=== PATIENT | female | born 1965 | race Caucasian/White ===

== ENCOUNTER 2019-02-23 16:29 | Inpatient (IN) | payer BC ==
[~2019-02-23] VITALS: Ht 167.6 cm; Wt 111.6 kg
[~2019-02-23 16:29] MED LIST: ALLEGRA ALLERG180 M1 PO; ASPI81CH PO; ATOR20 PO; Aldactone50 MG PO; BENAML20/5 PO; CYCL10 PO; HYDACE5 PO; HYDCHL25 PO; L-Lysine500 M1 PO; PROG100 PO; VITAMIN B122500 MCG PO; Voltaren100 GM TOP; [UNRECOGNIZED DRUG - REMARK]; [UNRECOGNIZED DRUG - REMARK]
[2019-02-27] MEDS ORDERED: Aspir 8181 MG PO (06:23)
--- NOTE | 2019-02-27 06:56 | NUR ---
Ambulatory in Day Surgery History, Chart, Medications and Allergies reviewed before start of procedure.Patient confirms NPO status and agrees with scheduled surgery. Patient reports completing Chlorhexadine shower X2 prior to admission to hospital.Lungs clear T/O to Auscultation. Surgical site prepped with 2% Chlorhexidine cloth wipe.
--- NOTE | 2019-02-27 11:58 | NUR ---
PT TO ROOM, SLEEPY. WAKES UP EASILY AND ANSWERS FEW QUESTIONS THEN GOES BACK TO SLEEP. HERE, EXPLAINED CALL LIGHT TO . BED ALARM PLACED. PT RIGHT HIP WITH SMALL GAUZE DRESSINGS C/D/I. PPX4. WIGGLES TOES. POLAR PAC IN PLACE. TOWEL WRAPPED BETWEEN LEGS. VSS. PAS IN PLACE.
--- NOTE | 2019-02-27 17:15 | NUR ---
SHIFT SUMMARY PT EATING AND DRINKING. PT VOIDED SINCE SURGERY PER PT. PT WORKED WITH THERAPY. PT CONT TO DENY PAIN AT THIS TIME. PAS/TEDS/POLAR PAC IN PLACE. PT FAMILY BEEN PRESENT. PT BEEN ASSISTED WITH ADL'S PRN. PT USING CALL LIGHT. PT BEEN UP TO CHAIR.
--- NOTE | 2019-02-27 17:37 | NUR ---
OTHER RN Mariana. GIVEN REPORT SHE IS TAKING OVER CARE OF PT AT THIS TIME.
--- NOTE | 2019-02-27 19:33 | NUR ---
SHIFT SUMMARY ASSUMED CARE AT 1730, NO ACUTE CHANGES, PT UP TO CHAIR, DENIES PAIN AT THIS TIME, RAMIRO PO, PLEASANT & COOPERATIVE. BEDSIDE REPORT PROVIDED TO MIRIAM WOLFE.
[2019-02-28 04:14] LABS: BASOPHILS ABSOLUTE AUTO 0.03 K/mm3 (0.00-0.23); BASOPHILS PERCENT AUTO 0 % (0-2); EOSINOPHILS PERCENT AUTO 0 % (0-6); Hematocrit 32.4 % (33.0-51.0); Hemoglobin 10.5 g/dL (11.5-16.0); IMMATURE GRAN PERCENT AUTO 1 % (0-1); LYMPHOCYTES ABSOLUTE AUTO 1.19 K/mm3 (0.84-5.20); LYMPHOCYTES PERCENT AUTO 6 % (21-46); MONOCYTES PERCENT AUTO 7 % (4-13); Mean Corpuscular HGB 30.3 pg (26.0-34.0); Mean Corpuscular HGB Conc 32.4 g/dL (31.5-36.5); Mean Platelet Volume 9.2 fL (9.1-12.4); NEUTROPHILS ABSOLUTE AUTO 16.92 K/mm3 (1.96-9.15); NEUTROPHILS PERCENT AUTO 86 % (41-73); Platelet Count 316 K/mm3 (150-400); RDW Coefficient Variation 13.2 % (11.7-14.2); RDW Standard Deviation 45.3 fL (35.1-46.3); Red Blood Cell Count 3.47 M/mm3 (3.80-5.20); White Blood Cell Count 19.64 K/mm3 (4.00-11.30)
[2019-02-28 04:19] LABS: Mean Corpuscular Volume 93 fL (80-100)
[2019-02-28 04:34] LABS: Anion Gap 7 mmol/L (6-16); Blood Urea Nitrogen 14 mg/dL (8-24); Bun/Creatinine Ratio 27.7 (12.0-20.0); CO2, Blood 25 mmol/L (21-32); Calcium, Blood 8.4 mg/dL (8.5-10.1); Chloride, Blood 107 mmol/L (98-108); Creatinine, Blood 0.51 mg/dL (0.40-1.00); Glomerular Filtration Rate >60 (60-); Glucose, Blood 133 mg/dL (70-99); Magnesium, Blood 1.8 mg/dL (1.6-2.4); Potassium, Blood 4.3 mmol/L (3.5-5.5); Sodium, Blood 139 mmol/L (136-145)
--- NOTE | 2019-02-28 05:39 | NUR ---
SHIFT SUMMARY: RACHAEL HAS RESTED INTERMITTENTLY THROUGHOUT THE NIGHT. SHE REPORTS ADEQUATE PAIN CONTROL WITH THE TORADOL AND APAP. DRESSING TO RIGHT HIP C/D&I. IV TO LEFT FOREARM PATENT. SHE IS TOLERATING PO INTAKE WELL. SHE IS ABLE TO MAKE HER NEEDS KNOWN. SHE IS AMBULATING WITH 1 PERSON ASSIST W/FWW. POLAR PACK, ELIER HOSE AND PAS IN PLACE. SHE IS LYING COMFORTABLY IN BED WITH HER CALL LIGHT IN REACH.
[2019-02-28] MEDS ORDERED: ASPI325EC PO (08:12)
[2019-02-28] MEDS ORDERED: OXYC5 PO (08:12)
[2019-02-28] MEDS ORDERED: PROM25 PO (08:13)
[2019-02-28] MEDS ORDERED: BACTRIM DS TAB1 EACH PO (08:13)
--- NOTE | 2019-02-28 10:30 | NUR ---
SHIFT SUMMARY PT A&OX4, VSS, LEFT FLOOR VIA WC WITH CAGE TENDER, TO GO HOME WITH , WITH ALL PERSONAL POSSESSIONS INCLUDING DISCHARGE PACKET AND 2 AQUACEL DRESSINGS. PT REP ALREADY HAVING ALL SCRIPTS FILLED AT HOME. DC INSTRUCTIONS PROVIDED. PT REP UNDERSTANDING THOSE INSTRUCIONS INCLUDING FU WITH SURGEON IN 2 WKS, OK TO SHOWER, NO TUB BATH, CHANGE DRESSINGS ON SUNDAYS UNTIL FU APPT, SHORT FREQUENT AMBULATION, OUTPT PHYSICAL THERAPY, ICE ELEVATE AT REST, SCDS AND POLAR ERIC USE.
== END 2019-02-28 10:21 | disposition home or self-care (01) | DRG 470 ==
LOC: SURS 02-27 05:39 → PRE IP 02-27 07:30 → SURS 02-27 11:47
PROVIDERS: ADMIT Orthopaedic Surgery
PROC: 0SR904A Replacement of Right Hip Joint with Ceramic on Polyethylene Synthetic Substitute, Uncemented, Open Approach (ICD-10-PCS; principal; 2019-02-27 07:30)
DX: M16.11 Unilateral primary osteoarthritis, right hip (principal); I10 Essential (primary) hypertension
CPT/HCPCS: 36415; 72170; 80048; 83735; 85025; 88300; 97110; 97116; 97162; 97165; 97530; 97535; A9270-GY; C1713; C1776; J0171; J0690; J0735; J1100; J1885; J2250; J2405; J2704; J2795; J3010; J7120

== ENCOUNTER → 2020-12-14 | Outpatient (CLI) | payer BC ==
[~2020-12-14] MED LIST changes: +ASPI325EC PO; +Aspir 8181 MG PO; +BACTRIM DS TAB1 EACH PO; +OXYC5 PO; +PROM25 PO
== END | disposition home or self-care (01) ==
LOC: LAB SHORT 13:50 → LAB 13:50
DX: L03.116 Cellulitis of left lower limb (principal)
CPT/HCPCS: 87070; 87075; 87077; 87147; 87186; 87205